=== PATIENT | female | born 1995 | race Caucasian/White ===

== ENCOUNTER 2024-02-29 15:29 | Day surgery (SDC) | payer OTHER ==
[~2024-02-29] VITALS: Ht 199.4 cm; Wt 116.7 kg
[2024-02-29] MEDS: NS 1,000 ML IV ONE ×2 (15:40→16:25)
[2024-02-29 16:18] LABS: HEMATOCRIT 31.2 % (36.0-47.0); HEMOGLOBIN 10.4 g/dl (12.0-15.5); MEAN CORPUSCULAR HEMOGLOBIN 30.7 pg (27.0-33.0); MEAN CORPUSCULAR HGB CONC 33.3 g/dl (32.0-36.5); PLATELET COUNT, AUTOMATED 570 10^3/uL (150-450); RED BLOOD COUNT 3.39 10^6/uL (4.00-5.40); WHITE BLOOD COUNT 23.7 10^3/uL (4.0-10.0)
[2024-02-29] MEDS: NS 1,500 ML in IV 1 EA IV ONE (16:25)
[2024-02-29 16:42] LABS: URINE PREG TEST POSITIVE (NEGATIVE)
[2024-02-29] MEDS: PIPERACILLIN/TAZOBACTAM SOD 4.5 GM in D5W MINI-BAG PLUS 50 ML IV ONE (16:42)
[2024-02-29 16:45] LABS: CK-MB VALUE MASS < 1.0 NG/ML (<3.6); LIPASE 38 U/L (12-53)
[2024-02-29 16:47] LABS: ALBUMIN 3.6 G/DL (3.2-5.2); ALKALINE PHOSPHATASE 53 U/L (46-116); ALT/SGPT 39 U/L (7.0-40); AST/SGOT 17 U/L (<34); BILIRUBIN,DIRECT 0.2 MG/DL (<0.4); BILIRUBIN,TOTAL 0.6 MG/DL (0.3-1.2); BLOOD UREA NITROGEN 11 MG/DL (9-23); CALCIUM LEVEL 9.4 MG/DL (8.5-10.1); CARBON DIOXIDE LEVEL 19 MMOL/L (20-31); CHLORIDE LEVEL 108 MMOL/L (98-107); CPK CREATINE PHOSPHOKINASE 62 U/L (34-145); CREATININE FOR GFR 1.11 MG/DL (0.55-1.30); GLOMERULAR FILTRATION RATE > 60.0 (>60); GLUCOSE, FASTING 241 MG/DL (60-100); MB/CK RELATIVE INDEX 1.61 (< OR =4); POTASSIUM SERUM 4.1 MMOL/L (3.5-5.1); SODIUM LEVEL 138 MMOL/L (136-145); TOTAL PROTEIN 6.6 G/DL (5.7-8.2)
[2024-02-29 16:49] LABS: HCG, SERUM QUALITATIVE POSITIVE (NEGATIVE)
[2024-02-29 16:54] LABS: ATYPICAL LYMPH 2 % (0-5); LYMPHOCYTES 14 % (16-44); MONOCYTES 2 % (0-5); NEUTROPHILS 80 % (28-66); PLATELET ESTIMATE INCREASED (NORMAL)
[2024-02-29 16:55] LABS: OVALOCYTES 1+; POIKILOCYTOSIS 1+
[2024-02-29] MEDS ORDERED: ONDANSETRON 4MG 2ML VIAL As Ordered ONE (17:32)
[2024-02-29] MEDS: ONDANSETRON 4MG 2ML VIAL IV ONE (17:45)
[2024-02-29] MEDS ORDERED: HOME MED LIST COMPLETE! XX SCH (17:45)
[2024-02-29] MEDS ORDERED: fentaNYL 100 MCG/2 ML INJECTION As Ordered ONE (18:16)
[2024-02-29] MEDS ORDERED: MIDAZOLAM INJ 2MG/2ML VIAL As Ordered ONE (18:16)
[2024-02-29] MEDS ORDERED: propofoL 200 MG/20 ML VIAL As Ordered ONE (18:17)
[2024-02-29] MEDS ORDERED: KETOROLAC 60MG 2ML VIAL As Ordered ONE (18:17)
[2024-02-29] MEDS ORDERED: ACETAMINOPHEN 1000MG 100ML IV BAG As Ordered ONE (18:17)
[2024-02-29] MEDS ORDERED: ROCURONIUM BROMIDE 50MG/5ML VIAL As Ordered ONE (18:17)
[2024-02-29] MEDS ORDERED: LIDOCAINE 2% 100MG/5ML SDV (FOR ANES.) As Ordered ONE (18:19)
[2024-02-29 18:20] LABS: HCG, SERUM QUANTITATIVE 7674.1 MIU/ML (<4.2)
[2024-02-29] MEDS ORDERED: HYDROmorphone HCL 2MG/ML 1ML VIAL As Ordered ONE (19:57)
[2024-02-29] MEDS ORDERED: SUGAMMADEX SODIUM 500 MG/5 ML VIAL (BRIDION) As Ordered ONE (19:59)
[2024-02-29] MEDS ORDERED: fentaNYL 100 MCG/2 ML INJECTION IV PRN (20:25)
[2024-02-29] MEDS ORDERED: HYDROMORPHONE HCL 0.5 MG/ 0.5 ML SYRINGE IV PRN (20:25)
[2024-02-29] MEDS: LR 1,000 ML IV SCH (20:25)
[2024-02-29] MEDS ORDERED: oxyCODONE 5MG TAB PO PRN (20:25)
[2024-02-29] MEDS: ONDANSETRON 4MG 2ML VIAL IV PRN (22:08)
[2024-02-29] MEDS: METOCLOPRAMIDE INJ 10MG/2ML VIAL IV PRN (22:41)
[2024-02-29 23:00] VITALS: BP 114/67; TEMP 97.3; O2SAT 94
[2024-02-29 23:20] VITALS: O2SAT 96
[2024-02-29 23:30] VITALS: BP 141/76; TEMP 97.3; O2SAT 99
[2024-02-29 23:53] LABS: HEMATOCRIT 30.9 % (36.0-47.0); HEMOGLOBIN 10.1 g/dl (12.0-15.5); MEAN CORPUSCULAR HEMOGLOBIN 29.3 pg (27.0-33.0); MEAN CORPUSCULAR HGB CONC 32.7 g/dl (32.0-36.5); MEAN CORPUSCULAR VOLUME 89.6 fl (80.0-96.0); PLATELET COUNT, AUTOMATED 280 10^3/uL (150-450); RED BLOOD COUNT 3.45 10^6/uL (4.00-5.40)
[2024-03-01] VITALS (7 sets, daily range): BP systolic 122–137; BP diastolic 71–76; TEMP 97–98.4; O2SAT 94–100
[2024-03-01] MEDS ORDERED: PERCOCET 5MG/325MG TAB PO PRN (01:20)
[2024-03-01] MEDS: KETOROLAC 30 MG/ML 1ML VIAL IV SCH (01:33)
[2024-03-01] MEDS: LR 1,000 ML IV SCH (01:35)
[2024-03-01] MEDS: PERCOCET 5MG/325MG TAB PO PRN (06:11)
[2024-03-01 09:22] LABS: HEMATOCRIT 23.5 % (36.0-47.0); MEAN CORPUSCULAR HEMOGLOBIN 29.7 pg (27.0-33.0); MEAN CORPUSCULAR VOLUME 87.4 fl (80.0-96.0); PLATELET COUNT, AUTOMATED 259 10^3/uL (150-450); RED BLOOD COUNT 2.69 10^6/uL (4.00-5.40)
== END 2024-03-01 13:07 | disposition home or self-care (01) ==
LOC: M ED 15:29 → M SDC 18:20 → M MSPAV 23:10 → UNDOADMIN 23:10 → M SDC 03-01 13:07 → UNDODISIN 03-01 13:07
PROVIDERS: ATTEND Obstetrics & Gynecology
DX: O00.102 Left tubal pregnancy without intrauterine pregnancy (principal)
CPT/HCPCS: 36415; 36430; 51701; 51702; 59151; 76801; 76830; 80048; 80076; 81001; 82550; 82553; 83605; 83690; 84484; 84702; 84703; 85025; 85027; 86850; 86900; 86901; 86920; 87040; 88305; 93005; 93041; 93976; 94760; 96365; 96375; 96376; 99291; 99292; J0131; J0665; J1100; J1170; J1885; J2250; J2405; J2543; J2765; J3010; P9016

== ENCOUNTER 2024-03-03 15:59 | Emergency (ER) | payer OTHER ==
[~2024-03-03] VITALS: Ht 165.1 cm; Wt 116.4 kg
[2024-03-03 16:01] VITALS: TEMP 98.2
[2024-03-03] MEDS ORDERED: OXYC1TAB23 PO (16:09)
[2024-03-03] MEDS ORDERED: IBUP-1022 PO (16:09)
[2024-03-03 18:45] LABS: BASO # 0.1 10^3/uL (0.0-0.2); BASO % 0.7 % (0.0-1.0); EOS # 0.1 10^3/uL (0.0-0.5); EOS % 1.1 % (0.0-3.0); HEMATOCRIT 23.1 % (36.0-47.0); HEMOGLOBIN 7.6 g/dl (12.0-15.5); LYMPH # 3.3 10^3/uL (1.5-5.0); LYMPH % 36.8 % (24.0-44.0); MEAN CORPUSCULAR HEMOGLOBIN 29.8 pg (27.0-33.0); MEAN CORPUSCULAR HGB CONC 32.9 g/dl (32.0-36.5); MEAN CORPUSCULAR VOLUME 90.6 fl (80.0-96.0); MONO # 0.6 10^3/uL (0.0-0.8); NEUTROPHILS # 4.8 10^3/uL (1.5-8.5); NEUTROPHILS % 53.6 % (36.0-66.0); PLATELET COUNT, AUTOMATED 257 10^3/uL (150-450); RED BLOOD COUNT 2.55 10^6/uL (4.00-5.40)
[2024-03-03 19:08] LABS: HCG, SERUM QUANTITATIVE 737.2 MIU/ML (<4.2)
[2024-03-03 19:09] LABS: BLOOD UREA NITROGEN 9 MG/DL (9-23); CALCIUM LEVEL 9.4 MG/DL (8.5-10.1); CARBON DIOXIDE LEVEL 28 MMOL/L (20-31); CHLORIDE LEVEL 107 MMOL/L (98-107); CREATININE FOR GFR 0.84 MG/DL (0.55-1.30); GLOMERULAR FILTRATION RATE > 60.0 (>60); GLUCOSE, FASTING 74 MG/DL (60-100); POTASSIUM SERUM 3.8 MMOL/L (3.5-5.1); SODIUM LEVEL 139 MMOL/L (136-145)
[2024-03-03 21:39] VITALS: BP 124/64; O2SAT 100
== END 2024-03-03 21:42 | disposition home or self-care (01) ==
LOC: M ED 15:59
DX: G89.18 Other acute postprocedural pain (principal); D64.9 Anemia, unspecified; Z79.1 Long term (current) use of non-steroidal anti-inflammatories (NSAID); Z79.899 Other long term (current) drug therapy